=== PATIENT | female | born 1995 | race American Indian/Alaskan Native ===

== ENCOUNTER 2024-10-24 03:39 | Emergency (ER) | payer BC, SELFPAY ==
[2024-10-24 03:41] VITALS: BP 132/80
--- NOTE | 2024-10-24 03:42 | ED.GENMED ---
History of Present Illness
General
Chief Complaint: Anxiety
Time Seen by Provider: 10/24/24 03:41
History of Present Illness
History of Present Illness:
TIME OF INITIAL EVALUATION
- 3:45 AM
REVIEW OF OLD RECORDS
- I reviewed records, the patient has a history of anxiety and does have a history of a subdural hematoma at age 11. I saw this patient in January 2023 due to a syncopal event.
Note:
CHIEF COMPLAINT(S)
The patient reports waking up in the middle of the night with a feeling of dread, similar to anxiety, accompanied by lightheadedness.
HISTORY OF PRESENT ILLNESS
The patient is a 29-year-old female who presents with sudden onset of a feeling of dread experienced upon waking in the middle of the night. This sensation was described as similar to anxiety and was accompanied by lightheadedness, occurring after
an uneventful day. She reports going to bed around 12:30 AM and notes a significant disturbance in her sleep characterized by an overwhelming feeling of dread. The patient denies any recent alcohol use and states she has not experienced similar
symptoms in recent memory, although she has had panic attacks in the past. She reports living with her mother, who was home at the time, and eventually contacted emergency services. She denies headaches or any recent head trauma. A medical history
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
SOCIAL HISTORY
The patient reports living with her mother and does not mention any alcohol use.
PHYSICAL EXAM
- General: Well appearing in no distress
- HEENT: Moist oral mucosa
- Cardiovascular: No murmurs, normal heart rate, regular rhythm, No chest wall tenderness
- Pulmonary: No respiratory distress, breath sounds are clear and equal
- Abdomen: Soft with no peritoneal signs, no tenderness
- Neurologic: Excellent strength all extremities, no coordination deficits
- Psychiatric: Appropriate mental status, normal insight and judgement, of note as I interviewed the patient on reevaluation this, the family was present, the patient appeared to be more anxious
- Extremities: Nontender, no edema, moves all extremities equally
- Skin: No rash, no lesions
PLAN
- Conduct basic laboratory blood tests to evaluate possible underlying causes.
- Obtain an Electrocardiogram (EKG) to monitor cardiac function.
- Monitor the patients condition while in the emergency department.
- Consider the administration of a one-time dose of lorazepam for anxiety if the patient feels it is necessary, as discussed.
DIFFERENTIAL DIAGNOSIS
The Differential Diagnosis includes, in no particular order and is not limited to:
1. Panic Attack
2. Generalized Anxiety Disorder
3. Orthostatic Hypotension
4. Vasovagal Syncope
5. Acute Stress Reaction
6. Hyperventilation Syndrome
7. Hypoglycemia
8. Cardiac Arrhythmia
9. Anemia
10. Dehydration
RADIOLOGY
-
EKG
- Sinus 77, normal axis, no acute ST abnormality
LABS
- White count is normal, hemoglobin slightly low at 11.6, MCV is normal, chemistries unremarkable, hCG negative
UPDATE
-SUMMARY OF ENCOUNTER
The patient, a 29-year-old female, presented to the emergency department with symptoms of waking up in the middle of the night with a feeling of dread and lightheadedness, which were reminiscent of anxiety. Upon assessment, the physical examination,
blood work, EKG, and vital signs were normal. The patient was given a low dose of lorazepam (Ativan) in the emergency room to address the anxiety symptoms. The patient had recently transitioned from taking venlafaxine (Effexor), an SNRI, to
fluoxetine (Prozac), an SSRI, under the management of her primary care physician for anxiety. She was advised that adjusting to a new medication can take time, and her symptoms of anxiety may fluctuate. The patient was offered a prescription for a
short course of alprazolam (Xanax) to manage acute episodes of anxiety over the next few days if needed.
DISPOSITION
Discharge.
ASSESSMENT
The patients presentation is consistent with anxiety, possibly related to medication transition between venlafaxine and fluoxetine, with normal cardiovascular findings.
EMERGENCY TREATMENTS ADMINISTERED
Lorazepam 0.5 mg administered.
PLAN
The patient was reassured about her normal test results and the commonality of her symptoms during SSRI to SNRI medication changes. She was instructed to continue following up with her primary care provider for further management of her anxiety
condition.
INDEPENDENT REVIEW OF LABS AND INTERPRETATION OF TESTS
My independent review of the CBC indicates that the MCV level is normal, suggesting no vitamin B-12 deficiency.
PATIENT EDUCATION AND COUNSELING
The patient was educated about the potential for high addiction potential with benzodiazepines and was counseled on using the prescribed alprazolam sparingly. She was reassured about the normal test results and guided on managing anxiety through
medication transition.
MEDICATION RECONCILIATION
Prescribed alprazolam (Xanax) for very short-term use in managing acute anxiety symptoms.
FOLLOW-UP INSTRUCTIONS
The patient was advised to follow up with her primary care provider for further management and support regarding her medication transition and anxiety symptoms.
MEDICAL DECISION MAKING
- Complexity of Data Reviewed: Differential diagnosis includes panic attack, generalized anxiety disorder, and medication-related anxiety symptoms.
- Data:
Category 1: Labs conducted include blood work, with the independent review of the CBC showing normal findings.
Category 2: My independent interpretation of the EKG was normal.
- Risk: Prescription drug management was addressed by providing alprazolam for short-term use and discussing its risks. Consideration of Admission/Observation: Escalation of care, including admission/observation, was considered given the complexity
and risk of the patients presenting complaint, exam findings, and/or their underlying comorbidities. However, ultimately, I feel the patient is safe for outpatient management with close follow-up. Reasoning: Work-up reassuring, does not reveal any
acute life/organ-threatening processes, patients symptoms well controlled upon reevaluation, reexamination is reassuring, vitals are stable, patient agreeable with discharge, reliable for follow-up.
DIAGNOSIS
- Panic Disorder (ICD-10: F41.0)
Phy Exam
Physical Exam
Physical Exam:
See HPI
Course
Orders/Labs/Results
Orders:
Orders
10/24/24 03:49
Electrocardiogram (*1) Urgent
Reason for Study: Syncope
EKG- Treatment ONCE
Test Result ONCE
10/24/24 03:56
Basic Metabolic Panel Urgent
Complete Blood Count/With Diff Urgent
HCG, Serum Qualitative Screen Urgent
10/24/24 04:12
Lorazepam [Ativan] 0.5 mg IV NOW STA
Abnormal Lab Results
10/24/24
03:56
RBC 3.79 L 10^6/uL
(4.20-5.40)
Hgb 11.6 L g/dL
(12.0-16.0)
Hct 34.5 L %
(37.0-47.0)
MPV 10.8 H fL
(7.4-10.4)
Chloride 112 H mmol/L
(98-107)
Glucose 139 H mg/dl
(70-99)
10/24/24 03:56
10/24/24 03:56
Vital Signs
Initial and Last Documented VS:
Initial Vital Signs
Temp Pulse Resp BP Pulse Ox
36.9 C 75 18 132/80 99
10/24/24 03:41 10/24/24 03:41 10/24/24 03:41 10/24/24 03:41 10/24/24 03:41
Last Documented Vital Signs
Temp Pulse Resp BP Pulse Ox
36.9 C 75 18 132/80 99
10/24/24 03:41 10/24/24 03:41 10/24/24 03:41 10/24/24 03:41 10/24/24 03:41
*Pulse Oximetry
Patient hypoxic: no
*Critical Care Note
Total Time (30-74mins, 75-104mins- exclusive of procedures): Not Applicable
ED Attending Note
-
Portions of this chart may have been created with voice recognition software.� Occasional wrong word or��sound alike� substitutions may have occurred due to the inherent limitations of voice recognition software.
Discharge Plan
Departure
Referrals:
UNKNOWN - PT DOES,NOT KNOW [Unknown Provider]
Interventions
Interventions:
*Risk Screen - Suicide Last Done: 10/24/24 03:41
*General Assessment Last Done: 10/24/24 03:41
*Neglect/Abuse Screening Last Done: 10/24/24 03:41
*ED- Fall Risk Assessment Last Done: 10/24/24 03:41
*ED COVID-19 Vaccine History Last Done: 10/24/24 03:41
ED-Psychological Assessment Last Done: 10/24/24 04:08
Discharge Date and Time
Print Language: BANGLADESHI
[2024-10-24 04:05] LABS: Hematocrit 34.5 % (37.0-47.0); Hemoglobin 11.6 g/dL (12.0-16.0); Mean Corp Hgb Conc. 33.6 g/dL (33.0-37.0); Mean Corpuscular Volume 91.0 fL (81.0-99.0); Nucleated Red Blood Cells % 0 %; Platelet Count 184 10^3/uL (130-400); Red Cell Dist. Width 12.4 % (11.5-14.5)
[2024-10-24 04:07] VITALS: BMI 25.2
[2024-10-24 04:19] LABS: Blood Urea Nitrogen 12 mg/dl (7-17); Calcium 8.9 mg/dl (8.4-10.2); Carbon Dioxide 24 mmol/L (22-30); Chloride 112 mmol/L (98-107); Estimated Creatinine Clearance 117 ml/min; Glucose 139 mg/dl (70-99); Potassium 3.7 mmol/L (3.5-5.1); Sodium 140 mmol/L (135-145); eGFR > 60.00
[2024-10-24 04:22] LABS: HCG, Serum Qualitative Screen Negative
[2024-10-24] MEDS: ATIVAN 0.5 MG IV (04:22)
[2024-10-24 04:57] VITALS: BP 130/84
== END 2024-10-24 04:59 | disposition home or self-care (01) ==
LOC: EMR 03:39
PROVIDERS: EMERGENCY PHYSICIAN Emergency Medicine; FAMILY PHYSICIAN Registered Nurse
DX: F41.9 Anxiety disorder, unspecified (principal); R42 Dizziness and giddiness
CPT/HCPCS: 99284; 96374; 80048; 84703; 85025; 93005